=== PATIENT | male | born 2000 | race Caucasian/White ===

== ENCOUNTER 2018-02-03 00:41 | Emergency (ER) | payer SELFPAY ==
[~2018-02-03] VITALS: Ht 182.9 cm; Wt 74.8 kg
[2018-02-03 00:51] VITALS: BP 110/70
[2018-02-03 00:55] VITALS: BP 110/70
== END 2018-02-03 01:00 | disposition left against medical advice (07) ==
LOC: MED 00:41
DX: F10.99 Alcohol use, unspecified with unspecified alcohol-induced disorder (principal); Z53.21 Procedure and treatment not carried out due to patient leaving prior to being seen by health care provider